=== PATIENT | male | born 1975 ===

== ENCOUNTER 2018-04-30 07:23 | Day surgery (SDC) | payer OTHER ==
[~2018-04-30 07:23] MED LIST: MARCAINE-EPI 0.5%-1:200,000 INFILTRATI ONE
--- NOTE | 2018-04-30 08:47 | Anesthesia Consultation ---
Anesthesia Consult and Med Hx Date of service: 04/30/18 - Airway Anesthetic Teeth Evaluation: Good, Crowns, Dentures (one artificial tooth that will be removed prior to surgery) ROM Head & Neck: Adequate Mental/Hyoid Distance: Adequate Mallampati Class: Class II Intubation Access Assessment: Probably Good - Pulmonary Exam CTA: Yes - Cardiac Exam Cardiac Exam: RRR - Pre-Operative Health Status ASA Pre-Surgery Classification: ASA2 Proposed Anesthetic Plan: General - Pulmonary Hx Smoking: Yes (quit 6 yrs ago) Hx Asthma: No Hx Respiratory Symptoms: No - Cardiovascular System Hx Hypertension: No Hx Heart Attack/AMI: No - Central Nervous System Hx Seizures: No CVA: No - Gastrointestinal Hx Gastroesophageal Reflux Disease: No - Endocrine Hx Renal Disease: No Hx Liver Disease: No Hx Insulin Dependent Diabetes: No Hx Thyroid Disease: No - Other Systems Hx Cancer: No Hx Obesity: Yes - Additional Comments Anesthesia Medical History Comments: No prior anesthetics. No FHx anesthetic complications.
--- NOTE | 2018-04-30 08:47 | Anesthesia Day of Surgery ---
Anesthesia Day of Surgery - Day of Surgery Patient Examined: Yes Patient H&P Reviewed: Yes Patient is NPO: Yes
[2018-04-30] MEDS ORDERED: NEURONTIN PO NR (09:00)
[2018-04-30] MEDS ORDERED: DILAUDID IV PRN (09:00)
[2018-04-30] MEDS ORDERED: LACTATED RINGERS 1,000 ML IV SCH ×2 (09:00)
[2018-04-30] MEDS ORDERED: ANCEF/STERILE WATER 2 GM/20 ML 2 GM/20 ML SYRINGE IV NR (09:00)
[2018-04-30] MEDS ORDERED: ceFAZolin 2 GM in NACL 0.9% 100 ML IV ONE (09:00)
[2018-04-30] MEDS ORDERED: VERSED IV NR (09:00)
[2018-04-30] MEDS ORDERED: QUELICIN ONE (09:28)
[2018-04-30] MEDS ORDERED: XYLOCAINE MPF 2% ONE (09:28)
[2018-04-30] MEDS ORDERED: REGLAN ONE (09:28)
[2018-04-30] MEDS ORDERED: SUBLIMAZE ONE (09:28)
[2018-04-30] MEDS ORDERED: ZOFRAN ONE (09:28)
[2018-04-30] MEDS ORDERED: DIPRIVAN 10 MG/ML IV ONE (09:29)
[2018-04-30] MEDS ORDERED: ROBINUL ONE (10:08)
[2018-04-30] MEDS ORDERED: BLOXIVERZ ONE (10:08)
--- NOTE | 2018-04-30 10:13 | Discharge Summary ---
Short Stay Discharge Plan Activity: other (observe x 4 hrs then may d/c if stable and able to void. ice chips today. cl liq in am and then advance to solid as dante. no lifting over 5 lbs x 3 wks. abd binder x 3 wks. keep dressings dry x 5 days) Weight Bearing Status: Non-Weight Bearing Diet: other Wound: keep clean and dry Additional Instructions: surfak I po q am x 3. aleve I po q 6-8 h prn for breakthrough pain Follow up with: JUSTIN SALAS MD [Staff Physician] - 7 Days
[2018-04-30] MEDS ORDERED: LACTATED RINGERS 1,000 ML ONE (10:22)
--- NOTE | 2018-04-30 10:39 | Operative Report ---
PREOPERATIVE DIAGNOSIS: Umbilical hernia. POSTOPERATIVE DIAGNOSIS: Umbilical hernia. PROCEDURE: Open umbilical hernia repair. SURGEON: Reggie Soni MD ANESTHESIA: General. ESTIMATED BLOOD LOSS: Minimal. DRAINS: No drains. COMPLICATIONS: None. DESCRIPTION OF PROCEDURE: The patient was taken to the operating room, prepped and draped in usual sterile fashion. A curvilinear infraumbilical incision was made down to the fascia. The hernia sac was dissected with Kellys and encircled with a Weems drain. Electrocautery was used to dissect the dome of the sac from the subcutaneous space. Some preperitoneal fat was noted within the sac contents, which was returned to the peritoneal cavity. The fascial edges were grasped with Allis clamps. was used for exposure. The fascia was then closed with interrupted #1 Surgilon sutures. After completion of repair, the area was palpated and noted to be well reconstructed. No other fascial defects or weaknesses noted. The area was irrigated copiously and dried. Checked for hemostasis and noted to be dry. The subcutaneous was closed with interrupted 3-0 Vicryl suture. The skin was closed with running subcuticular 4-0 Vicryl. Marcaine 0.5% with epinephrine was infiltrated over the area for postoperative pain relief. Steri-Strips, cotton ball, fluffs, and Elastoplast were placed. Abdominal binder will also be placed. The patient tolerated the procedure well and left OR in stable condition. JOB# [id number] NGOC/DONLEL
[2018-04-30 15:10] VITALS: BP 114/68
== END 2018-04-30 14:42 | disposition home or self-care (01) ==
LOC: OR 07:23
PROVIDERS: ATTEND Surgery
DX: K42.9 Umbilical hernia without obstruction or gangrene (principal); E66.9 Obesity, unspecified; Z68.35 Body mass index [BMI] 35.0-35.9, adult; Z87.891 Personal history of nicotine dependence; Z79.899 Other long term (current) drug therapy
CPT/HCPCS: 49585; J0330; J0690; J2250; J2405; J2704; J2710; J2765; J3010; J7120; J1170

== ENCOUNTER 2019-03-19 06:02 | Day surgery (SDC) | payer OTHER ==
[~2019-03-19 06:02] MED LIST changes: +ANCEF/STERILE WATER 2 GM/20 ML IV NR; -MARCAINE-EPI 0.5%-1:200,000 INFILTRATI ONE
[2019-03-19] MEDS ORDERED: LACTATED RINGERS 1,000 ML ONE (06:39)
[2019-03-19] MEDS ORDERED: LACTATED RINGERS 1,000 ML IV SCH (07:00)
[2019-03-19] MEDS ORDERED: MARCAINE 0.5% INFILTRATI ONE (07:18)
[2019-03-19] MEDS ORDERED: MARCAINE-EPI 0.5%-1:200,000 INFILTRATI ONE ×2 (07:18→08:35)
[2019-03-19] MEDS ORDERED: SUBLIMAZE IV PRN (07:30)
[2019-03-19] MEDS ORDERED: ZOFRAN IV PRN (07:30)
--- NOTE | 2019-03-19 07:34 | Anesthesia Consultation ---
Anesthesia Consult and Med Hx Date of service: 03/19/19 - Airway Anesthetic Teeth Evaluation: Partials (upper) ROM Head & Neck: Adequate Mental/Hyoid Distance: Adequate Mallampati Class: Class II Intubation Access Assessment: Probably Good - Pre-Operative Health Status ASA Pre-Surgery Classification: ASA2 Proposed Anesthetic Plan: General, MAC - Pulmonary Hx Smoking: Yes (STOPPED X 7 YRS) Hx Asthma: No Hx Respiratory Symptoms: No Hx Sleep Apnea: No (ZHEN PRE SCREEN LOW RISK) - Cardiovascular System Hx Hypertension: No Hx Heart Attack/AMI: No - Central Nervous System Hx Seizures: No CVA: No - Gastrointestinal Hx Gastroesophageal Reflux Disease: No - Endocrine Hx Renal Disease: No Hx Liver Disease: No Hx Insulin Dependent Diabetes: No Hx Thyroid Disease: No - Other Systems Hx Cancer: No Hx Obesity: Yes (BMI 35.2)
--- NOTE | 2019-03-19 07:35 | Anesthesia Day of Surgery ---
Anesthesia Day of Surgery - Day of Surgery Patient Examined: Yes Patient H&P Reviewed: Yes Patient is NPO: Yes
[2019-03-19] MEDS ORDERED: DIPRIVAN 10 MG/ML IV ONE (07:52)
[2019-03-19] MEDS ORDERED: VERSED ONE (07:53)
[2019-03-19] MEDS ORDERED: PEPCID PO NR (08:00)
[2019-03-19] MEDS ORDERED: VERSED IV NR (08:00)
[2019-03-19] MEDS ORDERED: ZEMURON IV ONE (08:02)
[2019-03-19] MEDS ORDERED: SUBLIMAZE ONE (08:04)
[2019-03-19] MEDS ORDERED: TORADOL ONE (08:33)
[2019-03-19] MEDS ORDERED: ROBINUL ONE ×2 (08:33)
[2019-03-19] MEDS ORDERED: BLOXIVERZ ONE (08:33)
[2019-03-19] MEDS ORDERED: NACL 0.9% IR ONE (08:35)
[2019-03-19] MEDS ORDERED: DECADRON ONE ×2 (08:36→08:54)
[2019-03-19] MEDS ORDERED: ZOFRAN ONE ×2 (08:36→08:54)
--- NOTE | 2019-03-19 08:57 | Discharge Summary ---
Short Stay Discharge Plan Activity: other (observe x 2 hrs then may d/c if stable. cl liq advance to reg as dante. d/c dressing and remove paciking Friday am while in shower. may wash with soap and water. then cover with gauze and tape) Diet: other Wound: per your surgeon's advice Additional Instructions: aleve I po q 6-8 hrs prn for breakthrough pain Follow up with: JUSTIN SALAS MD [Staff Physician] - 03/22/19
--- NOTE | 2019-03-19 09:23 | Operative Report ---
PREOPERATIVE DIAGNOSIS: Posterior neck mass. POSTOPERATIVE DIAGNOSIS: Posterior neck mass, probable lipoma, pending final pathology. PROCEDURE: Excision of aforementioned deep mass extending down to the muscle fascia. SURGEON: Reggie Soni MD ANESTHESIA: General. ESTIMATED BLOOD LOSS: Minimal. DRAINS: None. COMPLICATIONS: None. DESCRIPTION OF PROCEDURE: The patient was taken to the operating room and placed in prone position, prepped and draped in usual sterile fashion. The palpable posterior neck mass had been outlined with a marking pencil. A 15 blade was used to incise skin and subcutaneous tissues. Needle tip electrocautery was used to dissect down through the subcutaneous to the mass itself. Double skin hooks and subsequently Amber retractors were used to tract the skin. Electrocautery as well as sharp and blunt dissection were used to remove the mass in its entirety. The mass grossly appears to be lipomatous in nature. The mass extended down deep into, but did not adhere to the muscle fascia. The area was then irrigated copiously and dry, checked for hemostasis and noted to be dry. The fascia was closed with interrupted 3-0 Vicryl suture. The skin was closed with interrupted 4-0 Prolene. The center core of the incision was packed with quarter inch iodoform gauze. A 0.5% Marcaine with epinephrine was infiltrated over the fascia, subcutaneous, and skin for postoperative pain relief. Fluffs and pressure dressings applied. The patient tolerated the procedure well and left OR in stable condition. JOB# [id number] NGOC/DONELL
--- NOTE | 2019-03-19 10:45 | Post Anesthesia Evaluation ---
- Post Anesthesia Evaluation Patient Participated: Yes Airway Patent: Yes Stable Respiratory Function: Yes Nausea/Vomiting: No Temp > 96.8F: Yes Pain Manageable: Yes Adequeate Hydration: Yes Anesthesia Complications: No
[2019-03-19 11:12] VITALS: BP 128/75
== END 2019-03-19 11:05 | disposition home or self-care (01) ==
LOC: OR 06:02
PROVIDERS: ATTEND Surgery
DX: D17.0 Benign lipomatous neoplasm of skin and subcutaneous tissue of head, face and neck (principal); E66.9 Obesity, unspecified; Z68.35 Body mass index [BMI] 35.0-35.9, adult; Z98.890 Other specified postprocedural states; Z79.899 Other long term (current) drug therapy; Z87.891 Personal history of nicotine dependence
CPT/HCPCS: 21552; 88304; J0690; J1100; J1885; J2250; J2405; J2704; J2710; J3010; J7120; 88307